=== PATIENT | male | born 1980 | race Caucasian/White ===

== ENCOUNTER 2017-08-25 18:50 | Emergency (ER) | payer OTHER ==
[~2017-08-25] VITALS: Ht 182.9 cm; Wt 84.8 kg
[2017-08-25 18:56] VITALS: BP_SYST 127
[2017-08-25] MEDS ORDERED: ALBUTEROL SULFATE 0.083% 2.5 MG/3 ML VIAL.NEB INH ONE (19:00)
[2017-08-25] MEDS ORDERED: IBUPROFEN 800 MG TABLET PO ONE (19:00)
[2017-08-25] MEDS ORDERED: DEXAMETHASONE SOD PHOSPHATE 10 MG/ML VIAL IM ONE (19:00)
[2017-08-25] MEDS ORDERED: IPRATROPIUM/ALBUTEROL SULFATE 3 ML AMPUL.NEB INH ONE (19:00)
[2017-08-25 21:38] VITALS: BP_SYST 127
== END 2017-08-25 20:05 | disposition home or self-care (01) ==
LOC: SED 18:50
DX: J45.901 Unspecified asthma with (acute) exacerbation (principal); J20.9 Acute bronchitis, unspecified; R03.0 Elevated blood-pressure reading, without diagnosis of hypertension; Z87.891 Personal history of nicotine dependence; F12.90 Cannabis use, unspecified, uncomplicated
CPT/HCPCS: 71010; 94640; 96372; 99284; J1100